=== PATIENT | female | born 1955 | race Two or more races ===

== ENCOUNTER 2023-03-10 08:22 | Outpatient (CLI) | payer OTHER | END 2023-03-10 08:23 | disposition home or self-care (01) | LOC: SONOGRAMA 08:22 | PROVIDERS: ATTEND Pathology Anatomic Pathology & Clinical Pathology | DX: D34 Benign neoplasm of thyroid gland (principal) ==

== ENCOUNTER → 2024-11-13 | Outpatient (CLI) | payer OTHER | END | disposition home or self-care (01) | LOC: TOM 07:08 | PROVIDERS: ATTEND Colon & Rectal Surgery | DX: Z12.11 Encounter for screening for malignant neoplasm of colon (principal); K57.30 Diverticulosis of large intestine without perforation or abscess without bleeding ==